=== PATIENT | female | born 1950 | race Caucasian/White ===

== ENCOUNTER 2022-08-06 14:31 | Emergency (ER) | payer OTHER, BC ==
[~2022-08-06] VITALS: Ht 162.6 cm; Wt 81.6 kg
[2022-08-06] MEDS ORDERED: LISINOPRIL10 MG PO (15:21)
== END 2022-08-06 17:22 | disposition home or self-care (01) ==
LOC: ER 14:31
DX: N39.0 Urinary tract infection, site not specified (principal); I10 Essential (primary) hypertension